=== PATIENT | male | born 1965 | race Caucasian/White ===

== ENCOUNTER 2019-02-15 12:04 | Emergency (ER) | payer BC ==
[2019-02-15] MEDS ORDERED: DIPH/PERTUSS(ACELL)/TETANUS VAC/PF 0.5 ML SYR (>=10YO) IM ONE (12:11)
--- NOTE | 2019-02-15 12:11 | ER Document Report ---
ED Medical Screen (RME) - General Chief Complaint: Laceration Stated Complaint: HAND INJURY Time Seen by Provider: 02/15/19 12:09 Mode of Arrival: Ambulatory Information source: Patient Notes: Patient slipped using a utility knife cutting his left hand. Patient with a large palmar laceration to the left hand. Bleeding controlled with pressure. Patient does have a history of hypertension and diabetes. I have greeted and performed a rapid initial assessment of this patient. A comprehensive ED assessment and evaluation of the patient, analysis of test results and completion of the medical decision making process will be conducted by additional ED providers. Physical Exam - General General appearance: Alert Notes: Large palmar laceration to left hand.
[2019-02-15] MEDS ORDERED: ACETAMINOPHEN 325 MG TABLET PO ONE (13:48)
[2019-02-15] MEDS ORDERED: LIDOCAINE 1% INJ-PF (10 MG/ML) 30 ML SDV INJ ONE (13:48)
--- NOTE | 2019-02-15 15:34 | ER Document Report ---
ED General - General Chief Complaint: Laceration Stated Complaint: HAND INJURY Time Seen by Provider: 02/15/19 12:09 Primary Care Provider: TADEO LEONG DO [ACTIVE STAFF] - Follow up in 1 week (for hand follow up) Mode of Arrival: Ambulatory TRAVEL OUTSIDE OF THE [place] IN LAST 30 DAYS: No - HPI Notes: 53-year-old male to the emergency department with complaints of a left hand laceration that happened just prior to arrival. He states that he was using a new utility knife when he accidentally cut his hand. He states that it is a deep cut. He states he has pain mostly towards his thumb. He denies any numbness and tingling to the fingers or any loss of movement. He states that he is right-hand dominant. He is not up-to-date on his tetanus. - Related Data Allergies/Adverse Reactions: No Known Allergies Allergy (Verified 02/15/19 13:01) Past Medical History - General Information source: Patient - Social History Smoking Status: Never Smoker Frequency of alcohol use: None Drug Abuse: None Family History: Reviewed & Not Pertinent Patient has suicidal ideation: No Patient has homicidal ideation: No - Past Medical History Cardiac Medical History: Reports: Hx Hypertension Endocrine Medical History: Reports: Hx Diabetes Mellitus Type 2 Past Surgical History: Reports: Hx Orthopedic Surgery - right leg Review of Systems - Review of Systems Constitutional: denies: Chills, Fever EENT: No symptoms reported Cardiovascular: denies: Chest pain, Palpitations, Heart racing, Syncope, Dizziness, Lightheaded, Edema Respiratory: denies: Cough, Short of breath Gastrointestinal: denies: Abdominal pain, Diarrhea, Nausea, Vomiting Musculoskeletal: Joint pain - left hand pain and swelling, Joint swelling Skin: Other - left hand laceration Hematologic/Lymphatic: No symptoms reported Neurological/Psychological: No symptoms reported -: Yes All other systems reviewed and negative Physical Exam - Vital signs Vitals: Temp Pulse Resp BP Pulse Ox 98.1 F 76 16 146/98 H 99 02/15/19 16:05 02/15/19 16:05 02/15/19 16:05 02/15/19 16:05 02/15/19 16:05 Interpretation: Normal - General General appearance: Appears well, Alert In distress: None - HEENT Head: Normocephalic, Atraumatic Eyes: Normal Pupils: PERRL Ears: Normal External canal: Normal Tympanic membrane: Normal Sinus: Normal Nasal: Normal Mouth/Lips: Normal Mucous membranes: Normal Pharynx: Normal. No: Potential airway comprom. Neck: Normal, Supple - Respiratory Respiratory status: No respiratory distress Chest status: Nontender Breath sounds: Normal. No: Rales, Rhonchi, Stridor, Wheezing Chest palpation: Normal - Cardiovascular Rhythm: Regular Heart sounds: Normal auscultation Murmur: No - Extremities Hand: Tender - there is a significant laceration to the palm of the left hand. see skin for further discussion. there is FROM against resistance in all fingers of the left hand with 5/5 strength in the ED, FDS, FDP. Cap refill is less than two sec. Radial pulses intact and ok. - Neurological Neuro grossly intact: Yes Cognition: Normal Orientation: AAOx4 [place] Coma Scale Eye Opening: Spontaneous [place] Coma Scale Verbal: Oriented [place] Coma Scale Motor: Obeys Commands [place] Coma Scale Total: 15 Speech: Normal Cranial nerves: Normal Cerebellar coordination: Normal Motor strength normal: LUE, RUE, LLE, RLE Additional motor exam normals: Equal social economist. No: Plantar flexion Sensory: Normal - Psychological Associated symptoms: Normal affect, Normal mood - Skin Skin Temperature: Warm Skin Moisture: Dry Skin Color: Normal Skin irregularity: Laceration - to the left hand there is a 7 cm flap like laceration. Bleeding is controlled. Small visualization of the tendons, noted visualization of the thenar muscle. There is no disruption of the thenar muscle. There does not appear to be a tendon laceration. see MS for further discussion of hand ROM. Course - Re-evaluation Re-evalutation: 02/15/19 15:36 Impression: Left hand laceration. No FB and no evidence of tendon laceration. Patient tolerated repair well. Offered pain meds for home use, but patient declined. Will splint the patient and have him follow up with hand specialist. Will also start on prophylactic ABx. Patient agrees with the plan. Will discharge home. - Vital Signs Vital signs: Temp Pulse Resp BP Pulse Ox 98.1 F 76 16 146/98 H 99 02/15/19 16:05 02/15/19 16:05 02/15/19 16:05 02/15/19 16:05 02/15/19 16:05 Procedures - Immobilization Left Hand Time completed: 15:38 Pre-Proc Neuro Vasc Exam: Normal Immobilizer type: Volar splint Performed by: PCT Post-Proc Neuro Vasc Exam: Normal Alignment checked and good: Yes - Laceration/Wound Repair Left Hand Time completed: 15:37 Wound length (cm): 7 Wound's Depth, Shape: Flap Laceration pre-procedure: Sterile PPE donned, Chloraprep applied, Sterile drapes applied, Shur-Clens applied Anesthetic type: 1% Lidocaine Volume Anesthetic (mLs): 10 Wound explored: Clean, No foreign body removed Irrigated w/ Saline (mLs): 200 Wound Debrided: Minimal Wound Repaired With: Sutures Suture Size/Type: 4:0 Number of Sutures: 15 Post-procedure wound care: Sterile dressing applied, Splint applied - volar splint Post-procedure NV exam normal: Yes Complications: Yes Discharge - Discharge Clinical Impression: Laceration of left hand Qualifiers: Encounter type: initial encounter Foreign body presence: without foreign body Qualified Code(s): S61.412A - Laceration without foreign body of left hand, initial encounter Condition: Stable Disposition: HOME, SELF-CARE Instructions: Laceration Care ([facility]), Prophylactic Antibiotic ([facility]), Tetanus Immunization Given ([facility]) Additional Instructions: KEEP WOUND CLEAN AND DRY. WEAR SPLINT. FOLLOW WITH HAND SPECIALIST. COMPLETE ANTIBIOTICS. RETURN IF WORSENING PAIN, FEVERS, STREAKING REDNESS, PUS DRAINING. SUTURE REMOVAL IN 10 DAYS. Prescriptions: Amox Tr/Potassium Clavulanate [Augmentin 875-125 Tablet] 1 tab PO BID 10 Days #20 tablet Referrals: TADEO LEONG DO [ACTIVE STAFF] - Follow up in 1 week (for hand follow up)
[2019-02-15 16:08] VITALS: BP 146/98
== END 2019-02-15 16:20 | disposition home or self-care (01) ==
LOC: ER 12:04
DX: S61.412A Laceration without foreign body of left hand, initial encounter (principal); W26.0XXA Contact with knife, initial encounter; I10 Essential (primary) hypertension; E11.9 Type 2 diabetes mellitus without complications
CPT/HCPCS: 90471; 90715; 99282